=== PATIENT | male | born 1990 | race Caucasian/White ===

== ENCOUNTER 2018-01-21 16:34 | Emergency (ER) | payer SELFPAY ==
[~2018-01-21] VITALS: Ht 167.6 cm; Wt 77.1 kg
[~2018-01-21 16:34] MED LIST: AMOX500C2 PO; IBUP-1969 PO; [UNRECOGNIZED DRUG - CODE] PO
[2018-01-21 16:39] VITALS: BP_SYST 125
[2018-01-21 16:59] VITALS: BP_SYST 125
== END 2018-01-21 16:59 | disposition home or self-care (01) ==
LOC: SED 16:34
DX: J06.9 Acute upper respiratory infection, unspecified (principal)
CPT/HCPCS: 99283